=== PATIENT | female | born 1960 ===

== ENCOUNTER 2021-11-23 23:42 | Emergency (ER) | payer OTHER ==
[2021-11-24 00:49] LABS: Urine Blood 2+ (Negative); Urine Glucose Negative (Negative); Urine Protein 1+ (Negative); Urine Specific Gravity >=1.030 (1.005-1.030)
[2021-11-24] MEDS ORDERED: NA CHLORIDE 0.9% 1,000 ML ONE (01:12)
[2021-11-24] MEDS ORDERED: MORPHINE 4 MG/ML SYR ONE ×2 (01:12→03:15)
[2021-11-24] MEDS ORDERED: ONDANSETRON 4 MG/2 ML VIAL ONE (01:12)
[2021-11-24 01:20] LABS: Absolute Lymphocytes (CBC) 2.6 K/uL (0.7-4.9); Lymphocytes % 14.2 % (15.3-44.8); MPV 7.5 fL (7.6-11.3); RBC Red Blood Cell Count 3.99 M/uL (3.86-4.86)
[2021-11-24 01:42] LABS: ALT/SGPT 20 U/L (12-78); AST/SGOT 11 U/L (15-37); Albumin 3.7 g/dL (3.4-5.0); Alkaline Phosphatase 89 U/L (45-117); BUN Blood Urea Nitrogen 18 mg/dL (7-18); Bicarbonate 26 mmol/L (21-32); Bilirubin Total 0.2 mg/dL (0.2-1.0); Glomerular Filtration Rate 58 ml/min (=/>90); Glucose Level 116 mg/dL (74-106); Lipase 102 U/L (73-393); Potassium 3.6 mmol/L (3.5-5.1); Protein, Total 7.3 g/dL (6.4-8.2); Sodium Level 141 mmol/L (136-145)
[2021-11-24 01:46] LABS: Bilirubin Direct < 0.1 mg/dL (0-0.2)
[2021-11-24] MEDS ORDERED: PROMETHAZINE INJ 25 MG/ML AMP ONE (03:15)
[2021-11-24] MEDS ORDERED: Levofloxacin500mg IV 0 MG/0 ML BAG IV ONE (03:39)
[2021-11-24] MEDS ORDERED: KETOROLAC 30 MG/ML INJ ONE (03:42)
--- NOTE | 2021-11-24 05:23 | ER ---
Nurse's Notes [facility] Name: Safia Ochoa Age: 61 yrs Sex: Female : 1960 Arrival Date: 11/23/2021 Time: 23:44 Bed 19 Private MD: Diagnosis: Ureterolithiasis Presentation: 11/24 00:22 Chief complaint: Patient states: Pain with urination x 2 days, reports pain has become lp1 severe, vomiting; Denies fever, vaginal discharge, blood in urine; Reports unable to urinate; urinary frequency. Coronavirus screen: At this time, the client does not indicate any symptoms associated with coronavirus-19. Ebola Screen: No symptoms or risks identified at this time. Risk Assessment: Do you want to hurt yourself or someone else? Patient reports no desire to harm self or others. Onset of symptoms was November 24, 2021. 00:22 Method Of Arrival: Ambulatory lp1 00:22 Acuity: JACOBY 3 lp1 00:25 Initial Sepsis Screen: Does the patient meet any 2 criteria? No. Patient's initial lp1 sepsis screen is negative. Does the patient have a suspected source of infection? No. Patient's initial sepsis screen is negative. Triage Assessment: 00:29 General: Appears ill. Neuro: Level of Consciousness is awake, alert, obeys commands, lp1 Gait is steady. : Reports burning with urination, urinary frequency. Derm: Skin is intact, Skin is dry, Skin is pale. 02:17 General: Behavior is calm, cooperative. Cardiovascular: Patient's skin is warm and dry. kd3 Respiratory: Airway is patent Trachea midline Respiratory effort is even, unlabored, Respiratory pattern is regular, symmetrical. Historical: - Allergies: 00:24 Augmentin; lp1 00:24 Sulfa (Sulfonamide Antibiotics); lp1 - Home Meds: 00:24 Lisinopril Oral [Active]; levothyroxine oral [Active]; lp1 - PMHx: 00:24 Hypothyroidism; Hypertensive disorder; lp1 - PSHx: 00:24 Gastric sleeve; Jaw surgery; lp1 - Immunization history:: Adult Immunizations up to date, Client reports receiving the 2nd dose of the Covid vaccine. - Social history:: Smoking status: Patient reports the use of cigarette tobacco products, smokes one pack cigarettes per day. Screenin:16 Abuse screen: Denies threats or abuse. Denies injuries from another. Nutritional kd3 screening: No deficits noted. Tuberculosis screening: No symptoms or risk factors identified. Fall Risk IV access (20 points). Assessment: 02:17 Pain: Complains of pain in suprapubic area. GI: Bowel sounds present X 4 quads. Abd is kd3 soft X 4 quads Abdomen is tender to palpation in suprapubic area. 02:38 General: Appears uncomfortable, Behavior is calm, cooperative. Neuro: Level of kd3 Consciousness is awake, alert, obeys commands, Oriented to person, place, time, situation. Cardiovascular: Patient's skin is warm and dry. Respiratory: Airway is patent Trachea midline Respiratory effort is even, unlabored, Respiratory pattern is regular, symmetrical. : Urine is clear, Reports urinary frequency. 03:14 Reassessment: Patient and/or family updated on plan of care and expected duration. Pain kd3 level reassessed. Patient is alert, oriented x 3, equal unlabored respirations, skin warm/dry/pink. Vital Signs: 00:25 BP 174 / 74; Pulse 73; Resp 18; Temp 98.4(O); Pulse Ox 100% on R/A; Weight 79.83 kg lp1 (R); Height 5 ft. 4 in. (162.56 cm); Pain 8/10; 02:16 Pulse 80; Resp 19; Pulse Ox 94% on R/A; kd3 02:38 BP 172 / 76; Pulse 85; Resp 19; Pulse Ox 97% on R/A; kd3 03:40 BP 146 / 66; Pulse 65; Resp 18; Pulse Ox 95% on R/A; kd3 04:41 BP 125 / 59; Pulse 55; Resp 18; Pulse Ox 96% on R/A; kd3 05:48 BP 135 / 59; Pulse 64; Resp 18; Pulse Ox 100% on R/A; kd3 00:25 Body Mass Index 30.21 (79.83 kg, 162.56 cm) lp1 ED Course: 11/23 23:44 Patient arrived in ED. bp1 11/24 00:24 Triage completed. lp1 00:24 Arm band placed on right wrist. lp1 00:40 Annie Sierra, RN is Primary Nurse. kd3 00:48 Ti Jaime MD is Attending Physician. mh7 01:40 CT Stone Protocol In Process Unspecified. EDMS 02:16 Patient has correct armband on for positive identification. kd3 02:16 No provider procedures requiring assistance completed. Inserted saline lock: 20 gauge kd3 in right antecubital area, using aseptic technique. Blood collected. 05:21 Joselito Trujillo MD is Referral Physician. 7 05:47 IV discontinued, intact, bleeding controlled, No redness/swelling at site. Pressure kd3 dressing applied. Administered Medications: 01:16 Drug: NS 0.9% 1000 ml Route: IV; Rate: 1000 ml; Site: right antecubital; kd3 05:46 Follow up: Response: No adverse reaction; IV Status: Completed infusion kd3 01:16 Drug: Zofran (Ondansetron) 4 mg Route: IVP; Site: right antecubital; kd3 05:46 Follow up: Response: No adverse reaction kd3 01:16 Drug: morphine 4 mg Route: IVP; Infused Over: 4 mins; Site: right antecubital; kd3 05:46 Follow up: Response: Pain is decreased kd3 03:14 Drug: Phenergan (promethazine) 12.5 mg Route: IVP; Site: right antecubital; kd3 05:46 Follow up: Response: Pain is decreased kd3 03:14 Drug: morphine 4 mg Route: IVP; Infused Over: 4 mins; Site: right antecubital; kd3 05:46 Follow up: Response: Pain is decreased kd3 03:39 Not Given (Physician Discretion): LevaQUIN (levofloxacin) 500 mg 100 ml IVPB once over kd3 60 mins 03:39 Drug: Ketorolac 30 mg Route: IVP; Site: right antecubital; kd3 05:46 Follow up: Response: No adverse reaction kd3 05:46 Drug: Cipro (ciprofloxacin) 500 mg Route: PO; kd3 05:46 Follow up: Response: No adverse reaction kd3 Medication: 02:17 VIS not applicable for this client. kd3 Outcome: 05:22 Discharge ordered by . 7 05:47 Discharged to home ambulatory, with family. kd3 05:47 Condition: stable 05:47 Discharge instructions given to patient. 05:48 Patient left the ED. kd3 Signatures: Dispatcher [employer] EDMS Byrd, Chrissy, RN RN lp1 Maxine Alnoso Maurice, MD MD mh7 Annie Sierra RN RN kd3
--- NOTE | 2021-11-24 05:23 | EDPHYS ---
Physician Documentation [facility] Name: Safia Ochoa Age: 61 yrs Sex: Female : 1960 Arrival Date: 11/23/2021 Time: 23:44 Bed 19 Private MD: ED Physician Ti Jaime HPI: 11/24 00:50 This 61 yrs old Female presents to ER via Ambulatory with complaints of Abdominal Pain. mh7 00:50 The patient presents with urinary symptoms, dysuria, frequency, hesitancy. Onset: The mh7 symptoms/episode began/occurred 2 day(s) ago. Modifying factors: The symptoms are alleviated by nothing, the symptoms are aggravated by urinating. 00:50 Associated signs and symptoms: Pertinent positives: nausea. mh7 00:50 Associated signs and symptoms: Pertinent positives: lower abdominal pain, Pertinent mh7 negatives:. Severity of symptoms: At their worst the symptoms were moderate, yesterday, in the emergency department the symptoms are unchanged. Historical: - Allergies: 00:24 Augmentin; lp1 00:24 Sulfa (Sulfonamide Antibiotics); lp1 - Home Meds: 00:24 Lisinopril Oral [Active]; levothyroxine oral [Active]; lp1 - PMHx: 00:24 Hypothyroidism; Hypertensive disorder; lp1 - PSHx: 00:24 Gastric sleeve; Jaw surgery; lp1 - Immunization history:: Adult Immunizations up to date, Client reports receiving the 2nd dose of the Covid vaccine. - Social history:: Smoking status: Patient reports the use of cigarette tobacco products, smokes one pack cigarettes per day. ROS: 00:50 Constitutional: Negative for fever, chills, and weight loss, Eyes: Negative for injury, mh7 pain, redness, and discharge, ENT: Negative for injury, pain, and discharge, Neck: Negative for injury, pain, and swelling, Cardiovascular: Negative for chest pain, palpitations, and edema, Respiratory: Negative for shortness of breath, cough, wheezing, and pleuritic chest pain, Back: Negative for injury and pain, MS/Extremity: Negative for injury and deformity, Skin: Negative for injury, rash, and discoloration, Neuro: Negative for headache, weakness, numbness, tingling, and seizure, Psych: Negative for depression, anxiety, suicide ideation, homicidal ideation, and hallucinations, Allergy/Immunology: Negative for hives, rash, and allergies, Endocrine: Negative for neck swelling, polydipsia, polyuria, polyphagia, and marked weight changes, Hematologic/Lymphatic: Negative for swollen nodes, abnormal bleeding, and unusual bruising. Exam: 00:50 Head/Face: Normocephalic, atraumatic. Eyes: Pupils equal round and reactive to light, mh7 extra-ocular motions intact. Lids and lashes normal. Conjunctiva and sclera are non-icteric and not injected. Cornea within normal limits. Periorbital areas with no swelling, redness, or edema. Neck: Trachea midline, no thyromegaly or masses palpated, and no cervical lymphadenopathy. Supple, full range of motion without nuchal rigidity, or vertebral point tenderness. No Meningismus. Chest/axilla: Normal chest wall appearance and motion. Nontender with no deformity. No lesions are appreciated. Cardiovascular: Regular rate and rhythm with a normal S1 and S2. No gallops, murmurs, or rubs. Normal PMI, no JVD. No pulse deficits. Respiratory: Lungs have equal breath sounds bilaterally, clear to auscultation and percussion. No rales, rhonchi or wheezes noted. No increased work of breathing, no retractions or nasal flaring. 00:50 Skin: Warm, dry with normal turgor. Normal color with no rashes, no lesions, and no evidence of cellulitis. MS/ Extremity: Pulses equal, no cyanosis. Neurovascular intact. Full, normal range of motion. Neuro: Awake and alert, GCS 15, oriented to person, place, time, and situation. Cranial nerves II-XII grossly intact. Motor strength 5/5 in all extremities. Sensory grossly intact. Cerebellar exam normal. Normal gait. Psych: Awake, alert, with orientation to person, place and time. Behavior, mood, and affect are within normal limits. 00:50 Constitutional: The patient appears in no acute distress, alert, awake, uncomfortable. 00:50 Abdomen/GI: Inspection: obese Bowel sounds: normal, in the suprapubic area and right lower quadrant, Palpation: moderate abdominal tenderness, in the suprapubic area and right lower quadrant, mass, is not appreciated, rebound tenderness, is not appreciated, voluntary guarding, is not appreciated, involuntary guarding, is not appreciated, no appreciated organomegaly, Indicators: McBurney's point is not tender, Redd's sign is negative, Rovsing's sign is negative, Obturator sign is negative, Psoas sign is negative, Liver: no appreciated palpable abnormalities, Hernia: not appreciated. 00:50 Back: normal spinal alignment noted, CVA tenderness, that is mild, is noted on the right, vertebral tenderness, is not appreciated, muscle spasm, is not present. Vital Signs: 00:25 BP 174 / 74; Pulse 73; Resp 18; Temp 98.4(O); Pulse Ox 100% on R/A; Weight 79.83 kg lp1 (R); Height 5 ft. 4 in. (162.56 cm); Pain 8/10; 02:16 Pulse 80; Resp 19; Pulse Ox 94% on R/A; kd3 02:38 BP 172 / 76; Pulse 85; Resp 19; Pulse Ox 97% on R/A; kd3 03:40 BP 146 / 66; Pulse 65; Resp 18; Pulse Ox 95% on R/A; kd3 04:41 BP 125 / 59; Pulse 55; Resp 18; Pulse Ox 96% on R/A; kd3 05:48 BP 135 / 59; Pulse 64; Resp 18; Pulse Ox 100% on R/A; kd3 00:25 Body Mass Index 30.21 (79.83 kg, 162.56 cm) lp1 MDM: 05:20 Differential diagnosis: kidney stone, nonspecific abdominal pain, ovarian cyst, urinary mh7 tract infection. Data reviewed: vital signs, nurses notes, lab test result(s), CBC, electrolytes, urinalysis, radiologic studies, CT scan. Data interpreted: Pulse oximetry: on room air is 96 %. Interpretation: normal. Counseling: I had a detailed discussion with the patient and/or guardian regarding: the historical points, exam findings, and any diagnostic results supporting the discharge/admit diagnosis, lab results, radiology results, the need for outpatient follow up, a urologist. Response to treatment: the patient's symptoms have resolved after treatment, the patient's blood pressure is in an acceptable range, mental status has returned to baseline, the patient no longer shows bradycardia, the patient is not short of breath, the patient is not tachycardic, the patient's pain is gone, the patient's temperature has normalized. 05:22 Patient medically screened. [facility] 11/24 00:49 Order name: Urine Dipstick-Ancillary; Complete Time: 03:28 EDMS 11/24 01:04 Order name: BMP; Complete Time: 03:28 [facility] 11/24 01:04 Order name: CBC with Diff [facility] 11/24 01:04 Order name: Hepatic Function; Complete Time: 03:28 [facility] 11/24 01:04 Order name: Lipase; Complete Time: 03:28 [facility] 11/24 01:04 Order name: Lactate; Complete Time: 03:28 [facility] 11/24 01:04 Order name: CT Stone Protocol [facility] 11/24 05:08 Order name: Urine Microscopic Only [facility] 11/24 05:08 Order name: Urine Culture [facility] 11/24 00:29 Order name: Urine Dipstick-Ancillary (obtain specimen); Complete Time: 00:51 lp1 11/24 01:04 Order name: IV Saline Lock; Complete Time: 01:16 [facility] 11/24 01:04 Order name: Labs collected and sent; Complete Time: 01:16 [facility] 11/24 01:04 Order name: NPO; Complete Time: 01:16 kd3 Administered Medications: 01:16 Drug: NS 0.9% 1000 ml Route: IV; Rate: 1000 ml; Site: right antecubital; kd3 05:46 Follow up: Response: No adverse reaction; IV Status: Completed infusion kd3 01:16 Drug: Zofran (Ondansetron) 4 mg Route: IVP; Site: right antecubital; kd3 05:46 Follow up: Response: No adverse reaction kd3 01:16 Drug: morphine 4 mg Route: IVP; Infused Over: 4 mins; Site: right antecubital; kd3 05:46 Follow up: Response: Pain is decreased kd3 03:14 Drug: Phenergan (promethazine) 12.5 mg Route: IVP; Site: right antecubital; kd3 05:46 Follow up: Response: Pain is decreased kd3 03:14 Drug: morphine 4 mg Route: IVP; Infused Over: 4 mins; Site: right antecubital; kd3 05:46 Follow up: Response: Pain is decreased kd3 03:39 Not Given (Physician Discretion): LevaQUIN (levofloxacin) 500 mg 100 ml IVPB once over kd3 60 mins 03:39 Drug: Ketorolac 30 mg Route: IVP; Site: right antecubital; kd3 05:46 Follow up: Response: No adverse reaction kd3 05:46 Drug: Cipro (ciprofloxacin) 500 mg Route: PO; kd3 05:46 Follow up: Response: No adverse reaction kd3 Disposition Summary: 11/24/21 05:22 Discharge Ordered Location: Home [facility] Problem: new [facility] Symptoms: have improved [facility] Condition: Stable [facility] Diagnosis - Ureterolithiasis [facility] Followup: [facility] - With: Private Physician - When: 1 - 2 days - Reason: Worsening of condition, Recheck today's complaints, Continuance of care, Re-evaluation by your physician Followup: [facility] - With: Joselito Trujillo MD - When: 1 - 2 days - Reason: Worsening of condition, Recheck today's complaints Discharge Instructions: - Discharge Summary Sheet [facility] - Kidney Stones, Fere-bt-Aobo [facility] Forms: - Medication Reconciliation Form [facility] - Thank You Letter [facility] - Antibiotic Education [facility] - Prescription Opioid Use [facility] Prescriptions: - Flomax 0.4 mg Oral capsule - take 1 capsule by ORAL route once daily 1/2 hour following the same meal each [facility] day; 7 capsule; Refills: 0, Product Selection Permitted - ketorolac 10 mg Oral tablet - take 1 tablet by ORAL route every 6-8 hours As needed not to exceed 40 mg in [facility] 24hrs; 15 tablet; Refills: 0, Product Selection Permitted - ondansetron 4 mg Oral tablet,disintegrating - place 1 tablet by TRANSLINGUAL route every 8 hours; 10 tablet; Refills: 0, [facility] Product Selection Permitted - Cipro 500 mg Oral Tablet - take 1 tablet by ORAL route every 12 hours for 7 days; 14 tablet; Refills: 0, [facility] Product Selection Permitted Signatures: Dispatcher [employer] Chrissy Mustafa RN RN lp1 Ti Jaime MD MD 7 Annie Sierra RN RN kd3
[2021-11-24] MEDS ORDERED: CIPROFLOXACIN HCL 500 MG TAB ONE (05:41)
[2021-11-24 06:06] VITALS: TEMP 98.4
[2021-11-24 06:14] VITALS: BP 135/59; O2SAT 100
[2021-11-24 06:23] LABS: Urine Bacteria 20-50 /HPF (<20); Urine Mucus 2+ /HPF (NONE SEEN); Urine Yeast MANY (NONE SEEN)
[2021-11-24 06:24] LABS: Calcium Oxalate Crystals- Ur MANY (NONE SEEN)
--- NOTE | 2021-11-26 12:43 | RAD REPORT ---
EXAM DESCRIPTION: CT - Stone Protocol - 11/24/2021 6:50 am CLINICAL HISTORY: 61 years, Female, Flank pain, kidney stone suspected COMPARISON: None. TECHNIQUE: Multiple transaxial tomograms of the abdomen and pelvis were performed from the lung base s to the symphysis pubis 3 mm slice thickness at 3 mm interval reconstruction, without administration of IV and oral contrast. Multiplanar reformats in the sagittal and coronal plane were generated and reviewed. This exam was performed according to our departmental dose-optimization protocol, which includes auto mated exposure control, adjustment of the mA and/or kV according to patient size and/or use of iterat kalyan reconstruction technique. FINDINGS: The lack of IV and oral contrast limits evaluation of solid organs, subtle lesions cannot be excluded. The lung bases demonstrate to be clear. Grossly the unopacified liver, gallbladder, pancreas, spleen and adrenal glands demonstrate to be wit hin normal limits, no significant focal lesions were identified. There is increased size of the right kidney with right hydronephrosis and right hydroureter extending down to the level of the right UVJ where there is a 4.4 x 2.6 mm calculus on axial image 122 and cor onal image 58. No residual calculus is identified within the right kidney. The left kidney demonstrate to be unremarkable. There is no evidence for nephrolithiasis/or hydroneph rosis. Grossly the unopacified stomach demonstrated presence of status post gastric bypass sleeve. Otherwise the stomach, small bowel and large bowel demonstrate to be within normal limits. There is no evidenc e for bowel dilatation/or free air. The urinary bladder was partially distended with no gross abnormalities. The uterus demonstrate to be within normal limits. No adnexal masses are identified. The aorta demonstrate minimal atheroscleroti c disease at the aortic bifurcation. There is no retroperitoneal lymphadenopathy. There is no stevie dence for ascites. The rest of the soft tissue demonstrate to be grossly unremarkable. IMPRESSION: 4.4 x 2.6 mm calculus at the right UVJ with right hydronephrosis and right hydroureter. Status post gastric bypass sleeve. Electronically signed by: Chaim Law MD 11/24/2021 2:14 AM CDT Due to temporary technical issues with the PACS/Fluency reporting system, reports are being signed by the in house radiologist without review as a courtesy to ensure prompt reporting. The interpreting r adiologist is fully responsible for the content of the report.
== END 2021-11-24 05:48 | disposition home or self-care (01) ==
LOC: ER 23:42
DX: N20.1 Calculus of ureter (principal); I10 Essential (primary) hypertension; F17.210 Nicotine dependence, cigarettes, uncomplicated; E03.9 Hypothyroidism, unspecified; Z88.1 Allergy status to other antibiotic agents; Z88.2 Allergy status to sulfonamides
CPT/HCPCS: 87088; 85025; 87086; 80048; 36415; 80076; 83605; 83690; 76377; 74176; J2550; J7030; J2405; 81003; 81015; 96361; 96374; 96375; 99284